=== PATIENT | female | born 2000 | race Caucasian/White ===

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

== ENCOUNTER → 2020-05-04 | Emergency (ER) | payer MEDICAID, OTHER ==
[~2020-05-04] VITALS: Ht 170.2 cm; Wt 52.2 kg
[~2020-05-04] MED LIST: METOCLOPRAMIDE HCL 5MG/ml INJ 2ml VIAL IV ONE; MORPHINE SULFATE 4 MG/ML SYR/VIAL IV ONE; ONDANSETRON HCL 4 MG/2 ML VIAL IV ONE; SODIUM CHLORIDE 0.9% 1,000 ML IV ONE
[2020-05-04 10:24] LABS: Albumin 4.5 g/dL (3.4-5.0); Calcium 8.9 mg/dL (8.5-10.1); Potassium 3.4 mmol/L (3.5-5.1)
[2020-05-04 10:28] LABS: BUN/Creatinine Ratio 12.8; Bilirubin, Total 0.9 mg/dL (0.2-1.0); Total Protein 8.6 g/dL (6.4-8.2)
[2020-05-04 10:45] LABS: Basophils # (auto) 0 10 ^3/uL (0-0.2); Basophils % (auto) 0.4 % (0.0-2.0); Eosinophils # (auto) 0 10 ^3/uL (0-0.8); Hematocrit 45.9 % (36.0-46.0); Hemoglobin 15.3 g/dL (12.2-16.2); Lymphocytes # (auto) 1.5 10 ^3/uL (0.4-5.4); Lymphocytes % (auto) 18.5 % (10.0-50.0); Mean Corpuscular Hemoglobin 29.4 pg (28.0-32.0); Mean Corpuscular Hgb Conc. 33.3 g/dL (32.0-36.0); Mean Corpuscular Volume 88.2 fL (80.0-100.0); Monocytes # (auto) 0.6 10 ^3/uL (0-1.3); Monocytes % (auto) 7.9 % (0.0-12.0); Neutrophils # (auto) 5.8 10 ^3/uL (1.6-8.6); Neutrophils % (auto) 73.2 % (37.0-80.0); Nucleated Red Blood Cells % 0.2 %; Platelet Count (auto) 364 10^3/uL (140-450); Red Blood Cells 5.21 10^6/uL (4.0-5.20); Red Cell Distribution Width 13.6 % (11.8-14.3); White Blood Cell 7.9 10^3/uL (4.4-10.8)
[2020-05-04 13:38] VITALS: BP 100/56
== END | disposition home or self-care (01) ==
LOC: EDUNIT# 09:31 → EDBD 09:33 → ER 09:33
DX: E87.6 Hypokalemia (principal); E86.0 Dehydration
CPT/HCPCS: 36415; 74176; 80053; 85025; 96361; 96374; 96375; 99284; J2270; J2765; J7030

== ENCOUNTER 2020-05-05 18:41 | Inpatient (IN) | payer MEDICAID, OTHER ==
[~2020-05-05] VITALS: Ht 157.5 cm; Wt 40.8 kg
[2020-05-05] MEDS ORDERED: SODIUM CHLORIDE 0.9% 1,000 ML IVB ONE (20:14)
[2020-05-05] MEDS: PROMETHAZINE HCL 25 MG/ML 1ML IV PRN (20:35)
[2020-05-05] MEDS ORDERED: SODIUM CHLORIDE 0.9% 1,000 ML IV ONE (22:00)
[2020-05-05 22:08] LABS: Basophils # (auto) 0 10 ^3/uL (0-0.2); Basophils % (auto) 0.6 % (0.0-2.0); Eosinophils # (auto) 0 10 ^3/uL (0-0.8); Hematocrit 40.5 % (36.0-46.0); Hemoglobin 13.5 g/dL (12.2-16.2); Lymphocytes # (auto) 1.1 10 ^3/uL (0.4-5.4); Lymphocytes % (auto) 15.3 % (10.0-50.0); Mean Corpuscular Hemoglobin 29.4 pg (28.0-32.0); Mean Corpuscular Hgb Conc. 33.4 g/dL (32.0-36.0); Monocytes # (auto) 0.5 10 ^3/uL (0-1.3); Monocytes % (auto) 6.8 % (0.0-12.0); Neutrophils # (auto) 5.6 10 ^3/uL (1.6-8.6); Neutrophils % (auto) 77.3 % (37.0-80.0); Nucleated Red Blood Cells % 0.1 %; Platelet Count (auto) 288 10^3/uL (140-450); Red Cell Distribution Width 13.6 % (11.8-14.3); White Blood Cell 7.3 10^3/uL (4.4-10.8)
[2020-05-05 22:21] LABS: INR 1.18 (0.9-1.15); Partial Thromboplastin Time 25.8 sec (23.64-32.05)
[2020-05-05 22:27] LABS: Albumin 3.6 g/dL (3.4-5.0); BUN/Creatinine Ratio 11.4; Calcium 7.3 mg/dL (8.5-10.1)
[2020-05-05 22:29] LABS: Bilirubin, Total 0.7 mg/dL (0.2-1.0); Total Protein 7.1 g/dL (6.4-8.2)
[2020-05-05 22:34] LABS: Potassium 2.9 mmol/L (3.5-5.1)
[2020-05-05] MEDS ORDERED: SODIUM CHLORIDE 0.9% 1,000 ML IV SCH (23:34)
[2020-05-05] MEDS ORDERED: MORPHINE SULF INJ 2 MG/ML SYRINGE 1ML IV PRN (23:45)
[2020-05-05] MEDS ORDERED: ACETAMINOPHEN 325 MG TAB PO PRN (23:45)
[2020-05-05] MEDS ORDERED: HYDROcodone-ACET 5/325MG TAB PO PRN (23:45)
[2020-05-05] MEDS ORDERED: ONDANSETRON HCL 4 MG/2 ML VIAL IV PRN (23:45)
[2020-05-05] MEDS ORDERED: DOCUSATE SOD 100 MG CAP PO PRN (23:45)
[2020-05-06] MEDS: PROMETHAZINE HCL 25 MG/ML 1ML IV PRN ×2 (00:02→08:02)
[2020-05-06] MEDS: POTASSIUM CHL 20MEQ/100ML 100 ML IV SCH ×2 (00:02→02:12)
[2020-05-06 01:00] VITALS: BP 134/88
[2020-05-06 01:06] VITALS: BP 134/88
[2020-05-06 04:53] VITALS: BP 93/51
[2020-05-06 08:57] LABS: Basophils # (auto) 0 10 ^3/uL (0-0.2); Basophils % (auto) 0.3 % (0.0-2.0); Eosinophils # (auto) 0 10 ^3/uL (0-0.8); Eosinophils % (auto) 0.2 % (0.0-7.0); Hemoglobin 13.3 g/dL (12.2-16.2); Lymphocytes # (auto) 2.1 10 ^3/uL (0.4-5.4); Lymphocytes % (auto) 19.8 % (10.0-50.0); Mean Corpuscular Hemoglobin 29.6 pg (28.0-32.0); Mean Corpuscular Hgb Conc. 33.2 g/dL (32.0-36.0); Mean Corpuscular Volume 89.2 fL (80.0-100.0); Monocytes # (auto) 0.8 10 ^3/uL (0-1.3); Neutrophils # (auto) 7.5 10 ^3/uL (1.6-8.6); Neutrophils % (auto) 71.7 % (37.0-80.0); Nucleated Red Blood Cells % 0.1 %; Platelet Count (auto) 286 10^3/uL (140-450); Red Blood Cells 4.49 10^6/uL (4.0-5.20); Red Cell Distribution Width 13.9 % (11.8-14.3); White Blood Cell 10.5 10^3/uL (4.4-10.8)
[2020-05-06 09:00] VITALS: BP 117/73
[2020-05-06 09:17] LABS: Calcium 7.5 mg/dL (8.5-10.1); Potassium 3.6 mmol/L (3.5-5.1)
[2020-05-06 09:20] LABS: BUN/Creatinine Ratio 9.8
== END 2020-05-06 11:55 | disposition left against medical advice (07) | DRG 251 ==
LOC: ER 18:41 → OVERFLOW 18:42 → CENTRAL 05-06 00:50
PROVIDERS: ADMIT Hospitalist; ATTEND Hospitalist
DX: R10.9 Unspecified abdominal pain (principal); E86.0 Dehydration; E87.6 Hypokalemia; R11.2 Nausea with vomiting, unspecified; Z53.29 Procedure and treatment not carried out because of patient's decision for other reasons; F32.9 Major depressive disorder, single episode, unspecified; Z81.3 Family history of other psychoactive substance abuse and dependence
CPT/HCPCS: 36415; 71045; 80048; 80053; 82150; 83690; 83735; 84702; 85025; 85610; 85730; 96360; 96361; G0378; J3480

== ENCOUNTER 2021-05-13 17:11 | Emergency (ER) | payer MEDICAID ==
[~2021-05-13] VITALS: Ht 154.9 cm; Wt 38.6 kg
[2021-05-13] MEDS ORDERED: ONDANSETRON HCL 4 MG/2 ML VIAL ONE (17:24)
[2021-05-13] MEDS ORDERED: PANTOPRAZOLE 40 MG/10 ML VIAL INJ IV STA (17:27)
[2021-05-13] MEDS ORDERED: MORPHINE SULFATE 4 MG/ML SYR/VIAL IV ONE (17:30)
[2021-05-13] MEDS ORDERED: ONDANSETRON HCL 4 MG/2 ML VIAL IV ONE (17:30)
[2021-05-13] MEDS ORDERED: SODIUM CHLORIDE 0.9% 1,000 ML IVB ONE (17:30)
[2021-05-13 17:54] LABS: Basophils # (auto) 0 10 ^3/uL (0-0.2); Basophils % (auto) 0.3 % (0.0-2.0); Eosinophils # (auto) 0 10 ^3/uL (0-0.8); Hematocrit 43.2 % (36.0-46.0); Hemoglobin 14.9 g/dL (12.2-16.2); Lymphocytes # (auto) 1.8 10 ^3/uL (0.4-5.4); Lymphocytes % (auto) 24.3 % (10.0-50.0); Mean Corpuscular Hemoglobin 30.6 pg (28.0-32.0); Mean Corpuscular Hgb Conc. 34.4 g/dL (32.0-36.0); Mean Corpuscular Volume 88.8 fL (80.0-100.0); Monocytes # (auto) 0.6 10 ^3/uL (0-1.3); Monocytes % (auto) 8.5 % (0.0-12.0); Neutrophils % (auto) 66.9 % (37.0-80.0); Platelet Count (auto) 330 10^3/uL (140-450); Red Blood Cells 4.86 10^6/uL (4.0-5.20); Red Cell Distribution Width 13.5 % (11.8-14.3); White Blood Cell 7.5 10^3/uL (4.4-10.8)
[2021-05-13 18:03] LABS: Albumin 4.6 g/dL (3.4-5.0); Calcium 9.2 mg/dL (8.5-10.1); Potassium 3.2 mmol/L (3.5-5.1)
[2021-05-13 18:06] LABS: BUN/Creatinine Ratio 10.9; Bilirubin, Total 0.8 mg/dL (0.2-1.0); Total Protein 8.6 g/dL (6.4-8.2)
[2021-05-13] MEDS ORDERED: PROCHLORPERAZINE EDISYLATE 5 MG/ML 2ML VIAL IV ONE (19:00)
[2021-05-13] MEDS ORDERED: POTASSIUM CHL 20MEQ/100ML 100 ML IV ONE (19:00)
[2021-05-13] MEDS ORDERED: SODIUM CHLORIDE 0.9% 500 ML IV ONE (23:00)
[2021-05-13] MEDS ORDERED: POTASSIUM CHL 20 Meq TABLET PO ONE ×2 (23:15→23:31)
[2021-05-14] VITALS: BP 117/62
== END 2021-05-14 02:15 | disposition home or self-care (01) ==
LOC: ER 17:11
DX: F12.188 Cannabis abuse with other cannabis-induced disorder (principal); E87.6 Hypokalemia; R11.2 Nausea with vomiting, unspecified
CPT/HCPCS: 36415; 74176; 80053; 83690; 84702; 85025; 93005; 96361; 96374; 96375; 99285; C9113; J0780; J2270; J2405; J7030; J7040

== ENCOUNTER 2021-06-30 10:46 | Emergency (ER) | payer MEDICAID ==
[~2021-06-30] VITALS: Ht 157.5 cm; Wt 36.3 kg
[2021-06-30] MEDS ORDERED: SODIUM CHLORIDE 0.9% 1,000 ML IV ONE (11:00)
[2021-06-30] MEDS ORDERED: PANTOPRAZOLE 40 MG/10 ML VIAL INJ IV ONE (11:00)
[2021-06-30] MEDS ORDERED: PROCHLORPERAZINE EDISYLATE 5 MG/ML 2ML VIAL IV ONE (11:00)
[2021-06-30] MEDS ORDERED: MORPHINE SULF INJ 2 MG/ML SYRINGE 1ML IV ONE (11:00)
[2021-06-30 11:32] LABS: Basophils # (auto) 0 10 ^3/uL (0-0.2); Basophils % (auto) 0.3 % (0.0-2.0); Eosinophils # (auto) 0 10 ^3/uL (0-0.8); Hematocrit 40.8 % (36.0-46.0); Hemoglobin 14.2 g/dL (12.2-16.2); Lymphocytes # (auto) 0.8 10 ^3/uL (0.4-5.4); Lymphocytes % (auto) 6.2 % (10.0-50.0); Mean Corpuscular Hemoglobin 30.6 pg (28.0-32.0); Mean Corpuscular Hgb Conc. 34.8 g/dL (32.0-36.0); Mean Corpuscular Volume 87.8 fL (80.0-100.0); Monocytes # (auto) 0.3 10 ^3/uL (0-1.3); Monocytes % (auto) 2.2 % (0.0-12.0); Neutrophils # (auto) 11.6 10 ^3/uL (1.6-8.6); Neutrophils % (auto) 91.3 % (37.0-80.0); Red Blood Cells 4.65 10^6/uL (4.0-5.20); Red Cell Distribution Width 13.4 % (11.8-14.3); White Blood Cell 12.7 10^3/uL (4.4-10.8)
[2021-06-30 12:00] LABS: Albumin 4.5 g/dL (3.4-5.0); Calcium 9.6 mg/dL (8.5-10.1); Potassium 4.5 mmol/L (3.5-5.1)
[2021-06-30 12:05] LABS: Bilirubin, Total 0.8 mg/dL (0.2-1.0); Total Protein 9.1 g/dL (6.4-8.2)
[2021-06-30 12:31] VITALS: BP 102/63
== END 2021-06-30 12:50 | disposition home or self-care (01) ==
LOC: EDUNIT# 10:46 → EDBD 10:46 → ER 10:46
DX: R11.2 Nausea with vomiting, unspecified (principal); F32.9 Major depressive disorder, single episode, unspecified; Z98.890 Other specified postprocedural states
CPT/HCPCS: 36415; 80053; 85025; 96361; 96374; 96375; 99284; C9113; J0780; J2270; J7030; J7042

== ENCOUNTER 2022-03-14 22:09 | Emergency (ER) | payer MEDICAID ==
[~2022-03-14] VITALS: Ht 152.4 cm; Wt 31.8 kg
[2022-03-14 23:11] LABS: Basophils # (auto) 0 10 ^3/uL (0-0.2); Basophils % (auto) 0.3 % (0.0-2.0); Eosinophils # (auto) 0 10 ^3/uL (0-0.8); Eosinophils % (auto) 0.1 % (0.0-7.0); Hematocrit 41.8 % (36.0-46.0); Hemoglobin 14.3 g/dL (12.2-16.2); Lymphocytes # (auto) 1.4 10 ^3/uL (0.4-5.4); Lymphocytes % (auto) 9.7 % (10.0-50.0); Mean Corpuscular Hemoglobin 30.7 pg (28.0-32.0); Mean Corpuscular Hgb Conc. 34.2 g/dL (32.0-36.0); Mean Corpuscular Volume 89.6 fL (80.0-100.0); Monocytes # (auto) 1.4 10 ^3/uL (0-1.3); Monocytes % (auto) 9.3 % (0.0-12.0); Neutrophils # (auto) 11.8 10 ^3/uL (1.6-8.6); Neutrophils % (auto) 80.6 % (37.0-80.0); Nucleated Red Blood Cells % 0.1 %; Red Blood Cells 4.66 10^6/uL (4.0-5.20); Red Cell Distribution Width 13.6 % (11.8-14.3); White Blood Cell 14.7 10^3/uL (4.4-10.8)
[2022-03-14 23:28] LABS: Albumin 4.6 g/dL (3.4-5.0); Calcium 9.6 mg/dL (8.5-10.1); Magnesium 2.3 mg/dL (1.6-2.6); Potassium 3.7 mmol/L (3.5-5.1)
[2022-03-14 23:30] LABS: BUN/Creatinine Ratio 13.8
[2022-03-14] MEDS ORDERED: KETOROLAC TROMETH 30 MG/ML 1ML VIAL IV ONE (23:30)
[2022-03-14] MEDS ORDERED: METOCLOPRAMIDE HCL 5MG/ml INJ 2ml VIAL IV ONE (23:30)
[2022-03-14] MEDS ORDERED: diphenhdrAMINE HCL 50 MG/1 ML VL IV ONE (23:30)
[2022-03-14 23:32] LABS: Bilirubin, Total 0.8 mg/dL (0.2-1.0); Total Protein 8.9 g/dL (6.4-8.2)
[2022-03-15] MEDS ORDERED: HALOPERIDOL LACTATE 5 MG/ML INJ VIAL IM ONE (01:15)
[2022-03-15] MEDS ORDERED: ACETAMINOPHEN 325 MG TAB PO ONE (01:15)
[2022-03-15 01:48] LABS: Urine Bacteria FEW /hpf (None Seen); Urine Blood 1+ /uL (Negative); Urine Mucus FEW (None Seen); Urine Specific Gravity 1.035 (1.001-1.035); Urine WBC 10 /hpf (0 - 5)
[2022-03-15] MEDS ORDERED: SODIUM CHLORIDE 0.9% 1,000 ML IV ONE ×2 (02:00)
[2022-03-15] MEDS ORDERED: METO-281 PO (02:29)
[2022-03-15] MEDS ORDERED: CEPH500C PO (03:28)
[2022-03-15 03:59] VITALS: BP 124/68
== END 2022-03-15 03:59 | disposition home or self-care (01) ==
LOC: ER 22:13
DX: N39.0 Urinary tract infection, site not specified (principal); F12.188 Cannabis abuse with other cannabis-induced disorder; Z32.02 Encounter for pregnancy test, result negative
CPT/HCPCS: 36415; 80053; 81001; 81025; 83690; 83735; 85025; 96361; 96372; 96374; 96375; 99284; J1200; J1885; J2765; J7030

== ENCOUNTER 2022-03-15 15:07 | Inpatient (IN) | payer MEDICAID ==
[~2022-03-15] VITALS: Ht 152.4 cm; Wt 44.9 kg
[~2022-03-15 15:07] MED LIST changes: +CEPH500C PO; +METO-281 PO; -METOCLOPRAMIDE HCL 5MG/ml INJ 2ml VIAL IV ONE; -MORPHINE SULFATE 4 MG/ML SYR/VIAL IV ONE; -ONDANSETRON HCL 4 MG/2 ML VIAL IV ONE; -SODIUM CHLORIDE 0.9% 1,000 ML IV ONE
[2022-03-15] MEDS ORDERED: METOCLOPRAMIDE HCL 5MG/ml INJ 2ml VIAL IV ONE (17:00)
[2022-03-15] MEDS ORDERED: SODIUM CHLORIDE 0.9% 1,000 ML IV ONE (17:00)
[2022-03-15] MEDS ORDERED: fentaNYL CITRATE 100 MCG/2 ML VL IV ONE (17:00)
[2022-03-15] MEDS ORDERED: IOHEXOL 300 MG/ML 100ML BOTTLE IJ ONE (17:09)
[2022-03-15 17:19] LABS: Basophils # (auto) 0 10 ^3/uL (0-0.2); Basophils % (auto) 0.3 % (0.0-2.0); Eosinophils # (auto) 0 10 ^3/uL (0-0.8); Hematocrit 40.9 % (36.0-46.0); Hemoglobin 14.1 g/dL (12.2-16.2); Lymphocytes # (auto) 1.1 10 ^3/uL (0.4-5.4); Mean Corpuscular Hgb Conc. 34.4 g/dL (32.0-36.0); Monocytes # (auto) 0.5 10 ^3/uL (0-1.3); Monocytes % (auto) 4.2 % (0.0-12.0); Neutrophils # (auto) 10.7 10 ^3/uL (1.6-8.6); Neutrophils % (auto) 86.5 % (37.0-80.0); Red Blood Cells 4.55 10^6/uL (4.0-5.20); Red Cell Distribution Width 13.8 % (11.8-14.3); White Blood Cell 12.3 10^3/uL (4.4-10.8)
[2022-03-15 17:31] LABS: Calcium 8.8 mg/dL (8.5-10.1); Potassium 3.6 mmol/L (3.5-5.1)
[2022-03-15 17:34] LABS: BUN/Creatinine Ratio 19.3; Bilirubin, Total 0.6 mg/dL (0.2-1.0); Total Protein 7.9 g/dL (6.4-8.2)
[2022-03-15] MEDS ORDERED: cefTRIAXone 1GM/50ML D5W 50 ML IV ONE (23:15)
[2022-03-15] MEDS ORDERED: PANTOPRAZOLE 40 MG/10 ML VIAL INJ IV ONE (23:15)
[2022-03-15] MEDS ORDERED: metroNIDAZOLE 500MG/100ML 100 ML IV ONE (23:15)
[2022-03-15 23:18] LABS: Urine Bacteria NONE SEEN /hpf (None Seen); Urine Blood 2+ /uL (Negative); Urine Mucus FEW (None Seen); Urine WBC 11 /hpf (0 - 5)
[2022-03-15 23:19] LABS: Urine Specific Gravity 1.025 (1.001-1.035)
[2022-03-15 23:25] LABS: Alcohol, Urine < 3.0 mg/dL (0-10); Amphetamine Screen, Urine NEGATIVE (NEGATIVE); Barbiturate Scree,Urine NEGATIVE (NEGATIVE); Benzodiazephine Screen, Urine NEGATIVE (NEGATIVE); Cannabinoid Screen, Urine POSITIVE (NEGATIVE); Cocaine Screen, Urine NEGATIVE (NEGATIVE); Opiate Scree,Urine NEGATIVE (NEGATIVE); Phencyclidine Screen, Urine NEGATIVE (NEGATIVE)
[2022-03-16] MEDS: METOCLOPRAMIDE HCL 5MG/ml INJ 2ml VIAL IV PRN ×2 (00:30→06:49)
[2022-03-16] MEDS: SODIUM CHLORIDE 0.9% 4,000 ML IV SCH ×2 (01:38→23:15)
[2022-03-16] MEDS: MORPHINE SULFATE INJECTION 2 MG/ML SYRG IV PRN ×2 (01:44→06:44)
[2022-03-16 04:57] VITALS: BP 100/61
[2022-03-16] MEDS ORDERED: metroNIDAZOLE 500MG/100ML 100 ML IV SCH (06:00)
[2022-03-16 06:38] LABS: Basophils # (auto) 0 10 ^3/uL (0-0.2); Basophils % (auto) 0.4 % (0.0-2.0); Eosinophils # (auto) 0 10 ^3/uL (0-0.8); Eosinophils % (auto) 0.1 % (0.0-7.0); Hematocrit 35.8 % (36.0-46.0); Hemoglobin 12.2 g/dL (12.2-16.2); Lymphocytes # (auto) 2.7 10 ^3/uL (0.4-5.4); Lymphocytes % (auto) 26.6 % (10.0-50.0); Mean Corpuscular Hemoglobin 30.9 pg (28.0-32.0); Monocytes # (auto) 0.8 10 ^3/uL (0-1.3); Monocytes % (auto) 7.9 % (0.0-12.0); Neutrophils # (auto) 6.6 10 ^3/uL (1.6-8.6); Nucleated Red Blood Cells % 0.1 %; Red Blood Cells 3.93 10^6/uL (4.0-5.20); Red Cell Distribution Width 13.5 % (11.8-14.3); White Blood Cell 10.2 10^3/uL (4.4-10.8)
[2022-03-16 06:52] LABS: Albumin 3.2 g/dL (3.4-5.0); BUN/Creatinine Ratio 19.4; Calcium 7.9 mg/dL (8.5-10.1); Potassium 3.7 mmol/L (3.5-5.1)
[2022-03-16 06:55] LABS: Bilirubin, Total 0.5 mg/dL (0.2-1.0); Total Protein 6.2 g/dL (6.4-8.2)
[2022-03-16 09:00] VITALS: BP 116/81
[2022-03-16] MEDS ORDERED: cefTRIAXone 1GM/50ML D5W 50 ML IV SCH (09:00)
[2022-03-16] MEDS: ENOXAPARIN SOD 40 MG/0.4 ML SYRINGE SC SCH (09:45)
[2022-03-16] MEDS ORDERED: PANTOPRAZOLE 40 MG/10 ML VIAL INJ IV SCH (10:00)
[2022-03-16] MEDS: PROMETHAZINE HCL 25 MG/ML 1ML IV PRN ×3 (11:46→21:28)
[2022-03-16 13:00] VITALS: BP 120/80
[2022-03-16 17:00] VITALS: BP 108/79
[2022-03-16] MEDS: PANTOPRAZOLE 40 MG/10 ML VIAL INJ IV SCH (21:22)
[2022-03-16 22:00] VITALS: BP 122/87
[2022-03-17] MEDS: PROMETHAZINE HCL 25 MG/ML 1ML IV PRN ×3 (03:45→13:01)
[2022-03-17] MEDS: MORPHINE SULFATE INJECTION 2 MG/ML SYRG IV PRN (04:32)
[2022-03-17 05:00] VITALS: BP 142/90
[2022-03-17 05:30] LABS: Basophils # (auto) 0.1 10 ^3/uL (0-0.2); Basophils % (auto) 0.7 % (0.0-2.0); Eosinophils # (auto) 0 10 ^3/uL (0-0.8); Eosinophils % (auto) 0.6 % (0.0-7.0); Hematocrit 40.1 % (36.0-46.0); Hemoglobin 14.3 g/dL (12.2-16.2); Lymphocytes # (auto) 3.2 10 ^3/uL (0.4-5.4); Lymphocytes % (auto) 39.4 % (10.0-50.0); Mean Corpuscular Hemoglobin 31.9 pg (28.0-32.0); Mean Corpuscular Hgb Conc. 35.6 g/dL (32.0-36.0); Mean Corpuscular Volume 89.5 fL (80.0-100.0); Monocytes # (auto) 0.8 10 ^3/uL (0-1.3); Monocytes % (auto) 9.8 % (0.0-12.0); Neutrophils % (auto) 49.5 % (37.0-80.0); Nucleated Red Blood Cells % 0.1 %; Red Blood Cells 4.48 10^6/uL (4.0-5.20); Red Cell Distribution Width 13.2 % (11.8-14.3); White Blood Cell 8.1 10^3/uL (4.4-10.8)
[2022-03-17 05:41] LABS: INR 1.19 (0.9-1.15); Partial Thromboplastin Time 27.9 sec (23.6-33.0)
[2022-03-17] MEDS: PANTOPRAZOLE 40 MG/10 ML VIAL INJ IV SCH (08:43)
[2022-03-17] MEDS: ENOXAPARIN SOD 40 MG/0.4 ML SYRINGE SC SCH (08:43)
[2022-03-17 10:45] LABS: Albumin 3.6 g/dL (3.4-5.0); Calcium 8.4 mg/dL (8.5-10.1); Magnesium 2.3 mg/dL (1.6-2.6); Potassium 3.4 mmol/L (3.5-5.1)
[2022-03-17 10:48] LABS: BUN/Creatinine Ratio 12.2; Bilirubin, Total 0.7 mg/dL (0.2-1.0); Phosphorus 2.3 mg/dL (2.5-4.90); Total Protein 7.2 g/dL (6.4-8.2)
[2022-03-17] MEDS ORDERED: PANT40T PO (12:18)
[2022-03-17 12:22] VITALS: BP 135/77
== END 2022-03-17 13:50 | disposition home health service (06) | DRG 249 ==
LOC: ER 15:07 → TELE-EAST 23:04
PROVIDERS: ADMIT Registered Nurse; ATTEND Family Medicine
DX: R11.2 Nausea with vomiting, unspecified (principal); E44.0 Moderate protein-calorie malnutrition; S09.90XA Unspecified injury of head, initial encounter; E86.0 Dehydration; F12.188 Cannabis abuse with other cannabis-induced disorder; M54.2 Cervicalgia; Z68.1 Body mass index [BMI] 19.9 or less, adult; Z20.822 Contact with and (suspected) exposure to COVID-19; X58.XXXA Exposure to other specified factors, initial encounter; F32.A Depression, unspecified; Z81.3 Family history of other psychoactive substance abuse and dependence; Y93.89 Activity, other specified; Y92.89 Other specified places as the place of occurrence of the external cause; Y99.8 Other external cause status
CPT/HCPCS: 36415; 70450; 72125; 74177; 80053; 80307; 81001; 81025; 83735; 84100; 85025; 85610; 85730; 87086; 93306; 93886; 96361; 96365; 96375; C9113; G0378; J0696; J3490

== ENCOUNTER 2022-03-20 08:15 | Inpatient (IN) | payer MEDICAID ==
[~2022-03-20] VITALS: Ht 152.4 cm; Wt 46.0 kg
[~2022-03-20 08:15] MED LIST changes: +PANT40T PO
[2022-03-20] MEDS ORDERED: ONDANSETRON HCL 4 MG/2 ML VIAL IV ONE (08:45)
[2022-03-20] MEDS ORDERED: SODIUM CHLORIDE 0.9% 1,000 ML IVB ONE (08:45)
[2022-03-20 09:05] LABS: Urine Amorphous Crystal MANY /hpf (None Seen); Urine Bacteria NONE SEEN /hpf (None Seen); Urine Blood TRACE /uL (Negative); Urine Specific Gravity 1.016 (1.001-1.035); Urine WBC 11 /hpf (0 - 5)
[2022-03-20 09:29] LABS: Basophils # (auto) 0 10 ^3/uL (0-0.2); Basophils % (auto) 0.5 % (0.0-2.0); Eosinophils # (auto) 0 10 ^3/uL (0-0.8); Eosinophils % (auto) 0.2 % (0.0-7.0); Hematocrit 44.2 % (36.0-46.0); Hemoglobin 15.1 g/dL (12.2-16.2); Lymphocytes # (auto) 1.5 10 ^3/uL (0.4-5.4); Lymphocytes % (auto) 17.7 % (10.0-50.0); Mean Corpuscular Hemoglobin 30.4 pg (28.0-32.0); Mean Corpuscular Hgb Conc. 34.1 g/dL (32.0-36.0); Mean Corpuscular Volume 89.1 fL (80.0-100.0); Monocytes # (auto) 0.8 10 ^3/uL (0-1.3); Monocytes % (auto) 9.5 % (0.0-12.0); Neutrophils # (auto) 6.2 10 ^3/uL (1.6-8.6); Neutrophils % (auto) 72.1 % (37.0-80.0); Red Blood Cells 4.96 10^6/uL (4.0-5.20); Red Cell Distribution Width 13.2 % (11.8-14.3); White Blood Cell 8.6 10^3/uL (4.4-10.8)
[2022-03-20 09:46] LABS: Alanine Aminotransferase 28 U/L (13-56); Albumin 4.2 g/dL (3.4-5.0); Anion Gap 10 (5-15); Aspartate Aminotransferase 21 U/L (15-37); BUN/Creatinine Ratio 7.6; Blood Urea Nitrogen 7 mg/dL (7-18); Calcium 8.9 mg/dL (8.5-10.1); Carbon Dioxide 26 mmol/L (21-32); Chloride 102 mmol/L (98-107); GFR African American 99 mL/min; GFR Non-African American 82 mL/min; Glucose 89 mg/dL (74-106); Potassium 3.2 mmol/L (3.5-5.1); Sodium 138 mmol/L (136-145)
[2022-03-20 09:49] LABS: Alkaline Phosphatase 62 U/L (45-117); Bilirubin, Total 0.7 mg/dL (0.2-1.0); Total Protein 7.8 g/dL (6.4-8.2)
[2022-03-20] MEDS ORDERED: SODIUM CHLORIDE 0.9% 1,000 ML IV ONE ×2 (10:15→12:30)
[2022-03-20] MEDS ORDERED: METO5TAB67 PO (11:41)
[2022-03-20] MEDS ORDERED: diphenhdrAMINE HCL 50 MG/1 ML VL IM SCH (12:00)
[2022-03-20] MEDS ORDERED: METOCLOPRAMIDE HCL 5MG/ml INJ 2ml VIAL IV SCH (12:00)
[2022-03-20] MEDS ORDERED: HALOPERIDOL LACTATE 5 MG/ML INJ VIAL IM ONE ×3 (12:30→14:45)
[2022-03-20] MEDS ORDERED: HALOPERIDOL LACTATE 5 MG/ML INJ VIAL IV ONE (12:45)
[2022-03-20 12:55] LABS: Alcohol, Urine < 3.0 mg/dL (0-10); Amphetamine Screen, Urine NEGATIVE (NEGATIVE); Barbiturate Scree,Urine NEGATIVE (NEGATIVE); Benzodiazephine Screen, Urine NEGATIVE (NEGATIVE); Cannabinoid Screen, Urine POSITIVE (NEGATIVE); Cocaine Screen, Urine NEGATIVE (NEGATIVE); Opiate Scree,Urine NEGATIVE (NEGATIVE); Phencyclidine Screen, Urine NEGATIVE (NEGATIVE)
[2022-03-20] MEDS ORDERED: NITROGLYCERIN 0.4 MG SL TAB SL PRN (13:45)
[2022-03-20] MEDS ORDERED: MORPHINE SULFATE INJECTION 2 MG/ML SYRG IV PRN ×2 (13:45→14:00)
[2022-03-20] MEDS ORDERED: cefTRIAXone 1GM/50ML D5W 50 ML IV ONE (14:00)
[2022-03-20] MEDS ORDERED: LORazepam 0.5 MG TAB PO PRN (14:00)
[2022-03-20] MEDS ORDERED: HYDROcodone-ACET 5/325MG TAB PO PRN (14:00)
[2022-03-20] MEDS ORDERED: PANTOPRAZOLE 40 MG/10 ML VIAL INJ IV ONE (14:00)
[2022-03-20] MEDS ORDERED: DOCUSATE SOD 100 MG CAP PO PRN (14:00)
[2022-03-20] MEDS ORDERED: ONDANSETRON HCL 4 MG/2 ML VIAL IV PRN ×2 (14:00)
[2022-03-20 14:51] LABS: Magnesium 2.2 mg/dL (1.6-2.6); Phosphorus 2.4 mg/dL (2.5-4.90)
[2022-03-20] MEDS: SODIUM CHLORIDE 0.9% 1,000 ML IV SCH (15:44)
[2022-03-20 22:00] VITALS: BP 114/59
[2022-03-21 05:00] VITALS: BP 102/62
[2022-03-21 06:15] LABS: Basophils # (auto) 0.1 10 ^3/uL (0-0.2); Basophils % (auto) 0.9 % (0.0-2.0); Eosinophils # (auto) 0.1 10 ^3/uL (0-0.8); Eosinophils % (auto) 1.1 % (0.0-7.0); Hematocrit 37.2 % (36.0-46.0); Hemoglobin 12.6 g/dL (12.2-16.2); Lymphocytes # (auto) 2.1 10 ^3/uL (0.4-5.4); Lymphocytes % (auto) 28.8 % (10.0-50.0); Mean Corpuscular Hemoglobin 30.5 pg (28.0-32.0); Mean Corpuscular Volume 89.7 fL (80.0-100.0); Monocytes # (auto) 0.7 10 ^3/uL (0-1.3); Monocytes % (auto) 9.3 % (0.0-12.0); Neutrophils # (auto) 4.4 10 ^3/uL (1.6-8.6); Neutrophils % (auto) 59.9 % (37.0-80.0); Red Blood Cells 4.15 10^6/uL (4.0-5.20); Red Cell Distribution Width 12.9 % (11.8-14.3); White Blood Cell 7.3 10^3/uL (4.4-10.8)
[2022-03-21 06:31] LABS: Albumin 3.3 g/dL (3.4-5.0); BUN/Creatinine Ratio 10.9; Calcium 8.1 mg/dL (8.5-10.1); Magnesium 2.2 mg/dL (1.6-2.6)
[2022-03-21 06:34] LABS: Bilirubin, Total 0.6 mg/dL (0.2-1.0); Phosphorus 2.9 mg/dL (2.5-4.90); Total Protein 6.2 g/dL (6.4-8.2)
[2022-03-21] MEDS: SODIUM CHLORIDE 0.9% 1,000 ML IV SCH (07:00)
[2022-03-21 09:00] VITALS: BP 96/66
[2022-03-21] MEDS ORDERED: cefTRIAXone 1GM/50ML D5W 50 ML IV SCH (09:00)
[2022-03-21] MEDS ORDERED: PANTOPRAZOLE 40 MG/10 ML VIAL INJ IV SCH (10:00)
[2022-03-21] MEDS ORDERED: ENOXAPARIN SOD 40 MG/0.4 ML SYRINGE SC SCH (10:00)
[2022-03-21 13:00] VITALS: BP 118/76
[2022-03-21] MEDS ORDERED: POTASSIUM EFFERVESENT TAB 25 MEQ PO ONE (14:00)
[2022-03-21 15:30] VITALS: BP 105/64
[2022-03-21 17:00] VITALS: BP 117/64
== END 2022-03-21 16:00 | disposition home or self-care (01) | DRG 254 ==
LOC: ER 08:15 → OVERFLOW 13:39 → WEST WING 19:56
PROVIDERS: ADMIT Hospitalist; ATTEND Internal Medicine
DX: K90.0 Celiac disease (principal); F12.188 Cannabis abuse with other cannabis-induced disorder; F32.A Depression, unspecified; R11.2 Nausea with vomiting, unspecified; Z20.822 Contact with and (suspected) exposure to COVID-19; N39.0 Urinary tract infection, site not specified; Z81.3 Family history of other psychoactive substance abuse and dependence; Z85.72 Personal history of non-Hodgkin lymphomas
CPT/HCPCS: 36415; 74018; 80053; 80307; 81001; 81025; 83605; 83735; 84100; 85025; 85379; 87040; 87070; 87086; 87205; 93005; 96361; 96365; 96372; 96375; C9113; G0378; J0696

== ENCOUNTER 2022-06-15 07:43 | Inpatient (IN) | payer MEDICAID ==
[~2022-06-15] VITALS: Ht 154.9 cm; Wt 42.0 kg
[~2022-06-15 07:43] MED LIST changes: -CEPH500C PO; -METO-281 PO
[2022-06-15 09:20] LABS: Urine Bacteria MOD /hpf (None Seen); Urine Blood 1+ /uL (Negative); Urine Mucus FEW (None Seen); Urine Specific Gravity 1.031 (1.001-1.035); Urine WBC 7 /hpf (0 - 5)
[2022-06-15] MEDS ORDERED: MORPHINE SULFATE 4 MG/ML SYR/VIAL IV ONE (11:00)
[2022-06-15] MEDS ORDERED: SODIUM CHLORIDE 0.9% 1,000 ML IVB ONE (11:00)
[2022-06-15] MEDS ORDERED: PANTOPRAZOLE 40 MG/10 ML VIAL INJ IV ONE (11:00)
[2022-06-15] MEDS ORDERED: PROCHLORPERAZINE EDISYLATE 5 MG/ML 2ML VIAL IV ONE (11:00)
[2022-06-15 12:05] LABS: Basophils # (auto) 0 10 ^3/uL (0-0.2); Basophils % (auto) 0.1 % (0.0-2.0); Eosinophils # (auto) 0 10 ^3/uL (0-0.8); Hemoglobin 13.9 g/dL (12.2-16.2); Lymphocytes # (auto) 0.8 10 ^3/uL (0.4-5.4); Mean Corpuscular Hemoglobin 29.1 pg (28.0-32.0); Mean Corpuscular Hgb Conc. 32.4 g/dL (32.0-36.0); Mean Corpuscular Volume 89.9 fL (80.0-100.0); Monocytes # (auto) 0.6 10 ^3/uL (0-1.3); Monocytes % (auto) 3.7 % (0.0-12.0); Neutrophils # (auto) 14.2 10 ^3/uL (1.6-8.6); Neutrophils % (auto) 91.2 % (37.0-80.0); Red Blood Cells 4.78 10^6/uL (4.0-5.20); Red Cell Distribution Width 13.5 % (11.8-14.3); White Blood Cell 15.6 10^3/uL (4.4-10.8)
[2022-06-15 12:21] LABS: Albumin 4.5 g/dL (3.4-5.0); Calcium 9.5 mg/dL (8.5-10.1); Potassium 3.5 mmol/L (3.5-5.1)
[2022-06-15 12:26] LABS: BUN/Creatinine Ratio 13.2; Bilirubin, Total 0.6 mg/dL (0.2-1.0); Total Protein 9.3 g/dL (6.4-8.2)
[2022-06-15] MEDS ORDERED: ONDANSETRON HCL 4 MG/2 ML VIAL IV PRN (14:45)
[2022-06-15] MEDS ORDERED: DOCUSATE SOD 100 MG CAP PO PRN (14:45)
[2022-06-15] MEDS ORDERED: LACTATED RINGER'S 1,000 ML IV ONE (14:45)
[2022-06-15] MEDS ORDERED: HYDROmorphone HCL 2 MG/ML VL/or syr IV PRN (14:45)
[2022-06-15] MEDS ORDERED: cefTRIAXone 1GM/50ML D5W 50 ML IV SCH (14:45)
[2022-06-15] MEDS ORDERED: ENOXAPARIN SOD 40 MG/0.4 ML SYRINGE SC SCH (14:45)
[2022-06-15] MEDS ORDERED: HYDROcodone-ACET 5/325MG TAB PO PRN (14:45)
[2022-06-15] MEDS ORDERED: ACETAMINOPHEN 325 MG TAB PO PRN (14:45)
[2022-06-15 15:57] LABS: Alcohol, Urine < 3.0 mg/dL (0-10); Amphetamine Screen, Urine NEGATIVE (NEGATIVE); Barbiturate Scree,Urine NEGATIVE (NEGATIVE); Benzodiazephine Screen, Urine NEGATIVE (NEGATIVE); Cannabinoid Screen, Urine POSITIVE (NEGATIVE); Cocaine Screen, Urine NEGATIVE (NEGATIVE); Opiate Scree,Urine NEGATIVE (NEGATIVE); Phencyclidine Screen, Urine NEGATIVE (NEGATIVE)
[2022-06-15] MEDS ORDERED: SODIUM CHLORIDE 0.9% 500 ML IV ONE (20:45)
[2022-06-15] MEDS: SODIUM CHLOR 0.9% PF (SALINE LOCK) 10ML VIAL/SYR IV SCH (22:50)
[2022-06-16 02:13] VITALS: BP 81/45
[2022-06-16] MEDS ORDERED: METO5TAB67 PO (02:34)
[2022-06-16] MEDS: SODIUM CHLOR 0.9% PF (SALINE LOCK) 10ML VIAL/SYR IV SCH (05:39)
[2022-06-16 05:51] VITALS: BP 98/72
[2022-06-16 08:00] VITALS: BP 108/68
[2022-06-16 09:00] VITALS: BP 108/68
[2022-06-16] MEDS ORDERED: PANTOPRAZOLE 40 MG/10 ML VIAL INJ IV SCH (10:00)
== END 2022-06-16 14:52 | disposition left against medical advice (07) | DRG 251 ==
LOC: ER 07:43 → OVERFLOW 14:45 → WEST WING 06-16 01:47
PROVIDERS: ADMIT Internal Medicine; ATTEND Internal Medicine
DX: R10.9 Unspecified abdominal pain (principal); E86.0 Dehydration; R11.2 Nausea with vomiting, unspecified; N39.0 Urinary tract infection, site not specified; F12.90 Cannabis use, unspecified, uncomplicated; F17.200 Nicotine dependence, unspecified, uncomplicated; F32.A Depression, unspecified; R55 Syncope and collapse; Z53.29 Procedure and treatment not carried out because of patient's decision for other reasons; K90.0 Celiac disease; Z20.822 Contact with and (suspected) exposure to COVID-19; Z80.7 Family history of other malignant neoplasms of lymphoid, hematopoietic and related tissues; Z81.3 Family history of other psychoactive substance abuse and dependence
CPT/HCPCS: 36415; 70450; 80053; 80307; 81001; 82150; 83605; 83690; 85025; 85652; 86141; 87040; 87086; 96361; 96374; 96375; C9113; G0378; J0696

== ENCOUNTER 2022-06-18 11:49 | Emergency (ER) | payer MEDICAID ==
[~2022-06-18] VITALS: Ht 157.5 cm; Wt 41.9 kg
[~2022-06-18 11:49] MED LIST changes: +METO5TAB67 PO
[2022-06-18 12:50] LABS: Urine Amorphous Crystal MOD /hpf (None Seen); Urine Bacteria NONE SEEN /hpf (None Seen); Urine Blood Negative /uL (Negative); Urine Specific Gravity 1.017 (1.001-1.035); Urine WBC 6 /hpf (0 - 5)
[2022-06-18 13:34] LABS: Basophils # (auto) 0 10 ^3/uL (0-0.2); Basophils % (auto) 0.4 % (0.0-2.0); Eosinophils # (auto) 0 10 ^3/uL (0-0.8); Eosinophils % (auto) 0.1 % (0.0-7.0); Hematocrit 43.3 % (36.0-46.0); Hemoglobin 14.5 g/dL (12.2-16.2); Lymphocytes # (auto) 1.5 10 ^3/uL (0.4-5.4); Lymphocytes % (auto) 19.6 % (10.0-50.0); Mean Corpuscular Hemoglobin 29.7 pg (28.0-32.0); Mean Corpuscular Hgb Conc. 33.4 g/dL (32.0-36.0); Mean Corpuscular Volume 88.8 fL (80.0-100.0); Monocytes # (auto) 0.8 10 ^3/uL (0-1.3); Monocytes % (auto) 10.1 % (0.0-12.0); Neutrophils # (auto) 5.2 10 ^3/uL (1.6-8.6); Neutrophils % (auto) 69.8 % (37.0-80.0); Nucleated Red Blood Cells % 0.1 %; Red Blood Cells 4.88 10^6/uL (4.0-5.20); White Blood Cell 7.5 10^3/uL (4.4-10.8)
[2022-06-18 13:50] LABS: Albumin 4.2 g/dL (3.4-5.0); BUN/Creatinine Ratio 11.3; Calcium 8.8 mg/dL (8.5-10.1); Potassium 3.6 mmol/L (3.5-5.1)
[2022-06-18 14:04] LABS: Bilirubin, Total 0.9 mg/dL (0.2-1.0); Total Protein 8.1 g/dL (6.4-8.2)
[2022-06-18] MEDS ORDERED: METOCLOPRAMIDE HCL 5MG/ml INJ 2ml VIAL IV ONE (14:30)
[2022-06-18] MEDS ORDERED: SODIUM CHLORIDE 0.9% 1,000 ML IV ONE (14:30)
[2022-06-18] MEDS ORDERED: HALOPERIDOL LACTATE 5 MG/ML INJ VIAL IV PRN ×2 (14:30→14:45)
[2022-06-18] MEDS ORDERED: FAMOTIDINE (10MG/ML) 2ML VL IV ONE (14:30)
[2022-06-18] MEDS ORDERED: HALOPERIDOL LACTATE 5 MG/ML INJ VIAL IM ONE (16:00)
[2022-06-18] MEDS ORDERED: KETOROLAC TROMETH 30 MG/ML 1ML VIAL IV ONE (16:15)
[2022-06-18] MEDS ORDERED: PANT40TA2 PO (16:26)
[2022-06-18] MEDS ORDERED: METO-281 PO (16:26)
[2022-06-18 16:28] VITALS: BP 106/67
== END 2022-06-18 16:31 | disposition home or self-care (01) ==
LOC: ER 11:49
DX: R11.2 Nausea with vomiting, unspecified (principal); F12.188 Cannabis abuse with other cannabis-induced disorder; F12.10 Cannabis abuse, uncomplicated
CPT/HCPCS: 36415; 80053; 81001; 85025; 96361; 96372; 96374; 96375; 99284; J1630; J2765; J3490; J7030

== ENCOUNTER 2022-08-10 15:50 | Inpatient (IN) | payer MEDICAID ==
[~2022-08-10] VITALS: Ht 152.4 cm; Wt 45.4 kg
[~2022-08-10 15:50] MED LIST changes: +METO-281 PO; +PANT40TA2 PO
[2022-08-10] MEDS ORDERED: PANTOPRAZOLE 40 MG/10 ML VIAL INJ IV ONE (16:30)
[2022-08-10] MEDS ORDERED: METOCLOPRAMIDE HCL 5MG/ml INJ 2ml VIAL IV ONE (16:30)
[2022-08-10] MEDS ORDERED: SODIUM CHLORIDE 0.9% 1,000 ML IVB ONE (16:30)
[2022-08-10] MEDS ORDERED: DONNATAL 5ml ORAL Elix (BELLADONNA ALK-PHENOBARB) PO ONE (16:30)
[2022-08-10 16:42] LABS: Basophils # (auto) 0.1 10 ^3/uL (0-0.2); Basophils % (auto) 0.4 % (0.0-2.0); Eosinophils # (auto) 0 10 ^3/uL (0-0.8); Hematocrit 42.4 % (36.0-46.0); Hemoglobin 14.1 g/dL (12.2-16.2); Lymphocytes # (auto) 1.6 10 ^3/uL (0.4-5.4); Lymphocytes % (auto) 11.4 % (10.0-50.0); Mean Corpuscular Hemoglobin 29.6 pg (28.0-32.0); Mean Corpuscular Hgb Conc. 33.2 g/dL (32.0-36.0); Mean Corpuscular Volume 89.3 fL (80.0-100.0); Monocytes # (auto) 0.5 10 ^3/uL (0-1.3); Monocytes % (auto) 3.2 % (0.0-12.0); Nucleated Red Blood Cells % 0.1 %; Red Blood Cells 4.75 10^6/uL (4.0-5.20); Red Cell Distribution Width 13.5 % (11.8-14.3); White Blood Cell 14.2 10^3/uL (4.4-10.8)
[2022-08-10 16:51] LABS: Albumin 4.4 g/dL (3.4-5.0); Calcium 9.3 mg/dL (8.5-10.1); Potassium 3.7 mmol/L (3.5-5.1)
[2022-08-10 16:53] LABS: Bilirubin, Total 0.6 mg/dL (0.2-1.0); Total Protein 8.8 g/dL (6.4-8.2)
[2022-08-10] MEDS ORDERED: HALOPERIDOL LACTATE 5 MG/ML INJ VIAL IM ONE (20:00)
[2022-08-10] MEDS ORDERED: ONDANSETRON HCL 4 MG/2 ML VIAL IV ONE (21:00)
[2022-08-10] MEDS ORDERED: PROMETHAZINE HCL 25 MG/ML 1ML IV PRN (22:15)
[2022-08-10] MEDS ORDERED: ACETAMINOPHEN 325 MG TAB PO PRN (22:15)
[2022-08-10] MEDS ORDERED: HYDROcodone-ACET 5/325MG TAB PO PRN (22:15)
[2022-08-11] MEDS: SODIUM CHLORIDE 0.9% 1,000 ML IV SCH ×4 (02:29→19:35)
[2022-08-11] MEDS ORDERED: ALBUMIN 5% 250 ML IV ONE (04:45)
[2022-08-11 05:19] LABS: Basophils # (auto) 0 10 ^3/uL (0-0.2); Basophils % (auto) 0.1 % (0.0-2.0); Eosinophils # (auto) 0 10 ^3/uL (0-0.8); Hematocrit 34.5 % (36.0-46.0); Hemoglobin 11.7 g/dL (12.2-16.2); Lymphocytes # (auto) 1.1 10 ^3/uL (0.4-5.4); Lymphocytes % (auto) 7.9 % (10.0-50.0); Mean Corpuscular Volume 88.2 fL (80.0-100.0); Monocytes % (auto) 7.6 % (0.0-12.0); Neutrophils # (auto) 11.5 10 ^3/uL (1.6-8.6); Neutrophils % (auto) 84.4 % (37.0-80.0); Red Blood Cells 3.91 10^6/uL (4.0-5.20); Red Cell Distribution Width 13.4 % (11.8-14.3); White Blood Cell 13.6 10^3/uL (4.4-10.8)
[2022-08-11 05:35] LABS: Potassium 4.2 mmol/L (3.5-5.1)
[2022-08-11 05:39] LABS: BUN/Creatinine Ratio 18.2; Calcium 8.1 mg/dL (8.5-10.1)
[2022-08-11] MEDS: ONDANSETRON HCL 4 MG/2 ML VIAL IV PRN (07:42)
[2022-08-11 13:33] LABS: Alcohol, Urine < 3.0 mg/dL (0-10); Amphetamine Screen, Urine NEGATIVE (NEGATIVE); Barbiturate Scree,Urine NEGATIVE (NEGATIVE); Benzodiazephine Screen, Urine NEGATIVE (NEGATIVE); Cannabinoid Screen, Urine POSITIVE (NEGATIVE); Cocaine Screen, Urine NEGATIVE (NEGATIVE); Opiate Scree,Urine NEGATIVE (NEGATIVE)
[2022-08-11 13:37] LABS: Urine Bacteria FEW /hpf (None Seen); Urine Blood Negative /uL (Negative); Urine Specific Gravity 1.019 (1.001-1.035); Urine WBC 5 /hpf (0 - 5)
[2022-08-11 13:52] LABS: Phencyclidine Screen, Urine NEGATIVE (NEGATIVE)
[2022-08-11 22:00] VITALS: BP 116/77
[2022-08-11] MEDS ORDERED: CIPROFLOXACIN HYDROCHLORIDE 250 MG TAB PO SCH (22:00)
[2022-08-12] MEDS: TEMAZEPAM 15 MG CAP PO PRN (01:32)
[2022-08-12 05:00] VITALS: BP 97/53
[2022-08-12] MEDS: ONDANSETRON HCL 4 MG/2 ML VIAL IV PRN ×3 (06:13→19:42)
[2022-08-12 09:00] VITALS: BP 99/54
[2022-08-12] MEDS: SODIUM CHLORIDE 0.9% 1,000 ML IV SCH ×2 (10:47→21:00)
[2022-08-12 11:17] LABS: Potassium 3.6 mmol/L (3.5-5.1)
[2022-08-12 11:23] LABS: BUN/Creatinine Ratio 12.9; Calcium 8.2 mg/dL (8.5-10.1)
[2022-08-12 11:48] LABS: Basophils # (auto) 0 10 ^3/uL (0-0.2); Basophils % (auto) 0.2 % (0.0-2.0); Eosinophils # (auto) 0 10 ^3/uL (0-0.8); Hematocrit 37.8 % (36.0-46.0); Hemoglobin 12.5 g/dL (12.2-16.2); Lymphocytes # (auto) 1.6 10 ^3/uL (0.4-5.4); Lymphocytes % (auto) 17.1 % (10.0-50.0); Mean Corpuscular Hemoglobin 29.8 pg (28.0-32.0); Mean Corpuscular Hgb Conc. 32.9 g/dL (32.0-36.0); Mean Corpuscular Volume 90.4 fL (80.0-100.0); Monocytes # (auto) 0.7 10 ^3/uL (0-1.3); Neutrophils # (auto) 6.8 10 ^3/uL (1.6-8.6); Neutrophils % (auto) 74.7 % (37.0-80.0); Red Blood Cells 4.18 10^6/uL (4.0-5.20); Red Cell Distribution Width 13.3 % (11.8-14.3); White Blood Cell 9.1 10^3/uL (4.4-10.8)
[2022-08-12] MEDS: MORPHINE SULFATE INJ 2 MG/ml SYRG IV PRN ×2 (12:24→19:43)
[2022-08-12 13:00] VITALS: BP 122/80
[2022-08-12 17:00] VITALS: BP 101/69
[2022-08-12 22:00] VITALS: BP 120/78
[2022-08-13] MEDS: ONDANSETRON HCL 4 MG/2 ML VIAL IV PRN (00:15)
[2022-08-13] MEDS: TEMAZEPAM 15 MG CAP PO PRN (00:16)
[2022-08-13 05:00] VITALS: BP 139/80
[2022-08-13 06:08] LABS: Basophils # (auto) 0 10 ^3/uL (0-0.2); Basophils % (auto) 0.5 % (0.0-2.0); Eosinophils # (auto) 0 10 ^3/uL (0-0.8); Eosinophils % (auto) 0.2 % (0.0-7.0); Hematocrit 37.7 % (36.0-46.0); Hemoglobin 12.5 g/dL (12.2-16.2); Lymphocytes # (auto) 1.9 10 ^3/uL (0.4-5.4); Lymphocytes % (auto) 23.1 % (10.0-50.0); Mean Corpuscular Hemoglobin 29.5 pg (28.0-32.0); Mean Corpuscular Hgb Conc. 33.2 g/dL (32.0-36.0); Monocytes # (auto) 0.7 10 ^3/uL (0-1.3); Neutrophils # (auto) 5.5 10 ^3/uL (1.6-8.6); Neutrophils % (auto) 67.2 % (37.0-80.0); Red Blood Cells 4.24 10^6/uL (4.0-5.20); Red Cell Distribution Width 13.1 % (11.8-14.3); White Blood Cell 8.2 10^3/uL (4.4-10.8)
[2022-08-13 06:11] LABS: INR 1.11 (0.9-1.15); Partial Thromboplastin Time 28.5 sec (24.6-33.4)
[2022-08-13 06:13] LABS: BUN/Creatinine Ratio 10.1; Calcium 8.1 mg/dL (8.5-10.1); Potassium 3.9 mmol/L (3.5-5.1)
[2022-08-13 09:00] VITALS: BP_SYST 128; BP_SYST 157; BP_DIAS 84; BP_DIAS 96
[2022-08-13] MEDS ORDERED: levoFLOXacin 500MG 100 ML IV SCH (10:00)
[2022-08-13] MEDS: SODIUM CHLORIDE 0.9% 1,000 ML IV SCH (12:15)
[2022-08-13] MEDS ORDERED: FLUMAZENIL 0.1 MG/ML INJ 10ML MDV IV ONE (12:24)
[2022-08-13] MEDS ORDERED: LIDOCAINE VISCOUS 2% 15ML UD ONE (12:24)
[2022-08-13] MEDS ORDERED: diphenhdrAMINE HCL 50 MG/1 ML VL ONE (12:24)
[2022-08-13] MEDS ORDERED: NALOXONE HCL 0.4 MG/ML VIAL ONE (12:24)
[2022-08-13] MEDS ORDERED: EPINEPHrine HCL 1 MG/10 ML SYRG ONE (12:24)
[2022-08-13 13:00] VITALS: BP 126/83
[2022-08-13] MEDS: MIDAZOLAM HCL 5 MG/ML-1ML VIAL ONE ×3 (13:52→13:59)
[2022-08-13] MEDS: fentaNYL CITRATE 100 MCG/2 ML VL ONE ×2 (13:52→13:56)
[2022-08-13 17:00] VITALS: BP 111/77
[2022-08-13 17:36] VITALS: BP 126/83
== END 2022-08-13 18:10 | disposition home or self-care (01) | DRG 249 ==
LOC: EDUNIT# 15:50 → EDBD 15:50 → ER 15:50 → OVERFLOW 22:15 → EAST 08-11 19:22
PROVIDERS: ADMIT Nurse Practitioner; ATTEND Nurse Practitioner Acute Care
PROC: 0DB68ZX Excision of Stomach, Via Natural or Artificial Opening Endoscopic, Diagnostic (ICD-10-PCS; 2022-08-13)
PROC: 0DB98ZX Excision of Duodenum, Via Natural or Artificial Opening Endoscopic, Diagnostic (ICD-10-PCS; principal; 2022-08-13 13:52)
DX: K52.9 Noninfective gastroenteritis and colitis, unspecified (principal); R65.10 Systemic inflammatory response syndrome (SIRS) of non-infectious origin without acute organ dysfunction; I95.9 Hypotension, unspecified; K29.90 Gastroduodenitis, unspecified, without bleeding; K90.0 Celiac disease; E86.0 Dehydration; E86.1 Hypovolemia; F12.90 Cannabis use, unspecified, uncomplicated; F17.200 Nicotine dependence, unspecified, uncomplicated; Z20.822 Contact with and (suspected) exposure to COVID-19; K44.9 Diaphragmatic hernia without obstruction or gangrene; F32.A Depression, unspecified; R55 Syncope and collapse; G89.4 Chronic pain syndrome; Z81.3 Family history of other psychoactive substance abuse and dependence; Z80.7 Family history of other malignant neoplasms of lymphoid, hematopoietic and related tissues
CPT/HCPCS: 36415; 43239; 71045; 74176; 80048; 80053; 80307; 81001; 83605; 83690; 83735; 84702; 85025; 85610; 85730; 86850; 86900; 86901; 93005; 96361; 96374; 96375; C9113; G0378; J1956; J2250; J2405

== ENCOUNTER 2022-08-14 05:04 | Emergency (ER) | payer MEDICAID ==
[~2022-08-14] VITALS: Ht 152.4 cm; Wt 45.5 kg
[2022-08-14] MEDS ORDERED: METOCLOPRAMIDE HCL 5MG/ml INJ 2ml VIAL IV ONE (06:00)
[2022-08-14] MEDS ORDERED: SODIUM CHLORIDE 0.9% 1,000 ML IV ONE (06:00)
[2022-08-14] MEDS ORDERED: IOHEXOL 300 MG/ML 100ML BOTTLE IJ ONE (06:39)
[2022-08-14 07:03] LABS: Basophils # (auto) 0 10 ^3/uL (0-0.2); Basophils % (auto) 0.2 % (0.0-2.0); Eosinophils # (auto) 0 10 ^3/uL (0-0.8); Hematocrit 41.6 % (36.0-46.0); Hemoglobin 14.2 g/dL (12.2-16.2); Lymphocytes # (auto) 1.4 10 ^3/uL (0.4-5.4); Lymphocytes % (auto) 12.2 % (10.0-50.0); Mean Corpuscular Hemoglobin 29.7 pg (28.0-32.0); Mean Corpuscular Hgb Conc. 34.2 g/dL (32.0-36.0); Mean Corpuscular Volume 86.9 fL (80.0-100.0); Monocytes # (auto) 0.7 10 ^3/uL (0-1.3); Monocytes % (auto) 6.7 % (0.0-12.0); Neutrophils # (auto) 9.1 10 ^3/uL (1.6-8.6); Neutrophils % (auto) 80.9 % (37.0-80.0); Red Blood Cells 4.79 10^6/uL (4.0-5.20); Red Cell Distribution Width 12.9 % (11.8-14.3); White Blood Cell 11.2 10^3/uL (4.4-10.8)
[2022-08-14 07:21] LABS: Albumin 4.7 g/dL (3.4-5.0); BUN/Creatinine Ratio 13.2; Calcium 9.2 mg/dL (8.5-10.1); Potassium 3.8 mmol/L (3.5-5.1)
[2022-08-14 07:24] LABS: Bilirubin, Total 0.9 mg/dL (0.2-1.0); Total Protein 8.5 g/dL (6.4-8.2)
[2022-08-14 07:49] LABS: Urine Bacteria NONE SEEN /hpf (None Seen); Urine Blood TRACE /uL (Negative); Urine Mucus FEW (None Seen); Urine Specific Gravity 1.048 (1.001-1.035); Urine WBC 3 /hpf (0 - 5)
[2022-08-14 08:04] LABS: Amphetamine Screen, Urine NEGATIVE (NEGATIVE); Barbiturate Scree,Urine NEGATIVE (NEGATIVE); Benzodiazephine Screen, Urine POSITIVE (NEGATIVE); Cannabinoid Screen, Urine POSITIVE (NEGATIVE); Cocaine Screen, Urine NEGATIVE (NEGATIVE); Opiate Scree,Urine NEGATIVE (NEGATIVE); Phencyclidine Screen, Urine NEGATIVE (NEGATIVE)
[2022-08-14] MEDS ORDERED: ONDANSETRON HCL 4 MG/2 ML VIAL IV ONE ×2 (09:15→15:30)
[2022-08-14] MEDS ORDERED: ALUM & MAG HYDROX-SIMETH LIQ(MAALOX) 30 ML PO ONE (09:15)
[2022-08-14] MEDS ORDERED: FAMOTIDINE (10MG/ML) 2ML VL IV ONE (09:15)
[2022-08-14 13:00] VITALS: BP 104/66
== END 2022-08-14 16:05 | disposition home or self-care (01) ==
LOC: ER 05:04
DX: K29.70 Gastritis, unspecified, without bleeding (principal); Z79.899 Other long term (current) drug therapy; Z91.018 Allergy to other foods
CPT/HCPCS: 36415; 74177; 80053; 80307; 81001; 81025; 85025; 96361; 96374; 96375; 96376; 99285; J2405; J2765; J3490; J7030; Q9967